=== PATIENT | female | born 1975 | race African-American/Black ===

== ENCOUNTER 2016-06-03 21:49 | Emergency (ER) | payer MEDICAID ==
[2016-06-03] MEDS ORDERED: MORPHINE 4 MG/ML SYR ONE (22:33)
[2016-06-03] MEDS ORDERED: KETOROLAC 60 MG/2 ML VIAL IM ONE (22:33)
== END 2016-06-03 23:27 | disposition home or self-care (01) ==
LOC: ER 21:49
DX: S39.012A Strain of muscle, fascia and tendon of lower back, initial encounter (principal); M47.896 Other spondylosis, lumbar region; M54.41 Lumbago with sciatica, right side; Z79.899 Other long term (current) drug therapy; Z91.040 Latex allergy status; I10 Essential (primary) hypertension; K21.9 Gastro-esophageal reflux disease without esophagitis
CPT/HCPCS: 72100; 96372

== ENCOUNTER 2016-06-10 12:16 | Emergency (ER) | payer MEDICAID | END 2016-06-10 14:50 | disposition home or self-care (01) | LOC: ER 12:16 | DX: H01.001 Unspecified blepharitis right upper eyelid (principal); Z79.899 Other long term (current) drug therapy; Z91.040 Latex allergy status; I10 Essential (primary) hypertension; K21.9 Gastro-esophageal reflux disease without esophagitis ==